=== PATIENT | female | born 1960 | race Caucasian/White ===

== ENCOUNTER 2019-07-16 14:24 | Emergency (ER) | payer BC, SELFPAY ==
--- NOTE | 2019-07-16 14:36 | ED.URI ---
HPI - URI/Sore Throat General Chief Complaint: Upper Respiratory Infection Stated Complaint: sore throat/fever/cough/wheezing/chills Time Seen by Provider: 07/16/19 14:37 Source: patient Mode of arrival: ambulatory Limitations: no limitations History of Present Illness HPI Narrative: Maria C Still is a 58 female with hypothyroid, quentin cholesterol, diabetes, who comes to [facility] with upper respiratory symptoms, fever, congestion for 2 days Related Data Home Medications Medication Instructions Recorded Confirmed atorvastatin 20 mg tablet 20 mg PO DAILY tablet 06/07/19 07/16/19 lancets 28 gauge #25 each 06/07/19 06/07/19 levothyroxine 200 mcg tablet 200 mcg PO DAILY tablet 06/07/19 07/16/19 levothyroxine 25 mcg tablet 25 mcg PO DAILY tablet 06/07/19 07/16/19 metformin 500 mg tablet,extended 500 mg PO DAILY 06/07/19 07/16/19 release 24 hr pioglitazone 30 mg tablet 30 mg PO DAILY tablet 06/07/19 07/16/19 Allergies Allergy/AdvReac Type Severity Reaction Status Date / Time levofloxacin Allergy Unknown unknown Verified 06/07/19 16:33 Penicillins Allergy Unknown unknown Verified 06/07/19 16:33 Review of Systems Review of Systems: Narrative: CONSTITUTIONAL: Denies fever, chills, sweats. EYES: Denies visual changes, redness, discharge. ENT: Has rhinorrhea, congestion, sore throat, no otalgia. CARDIOVASCULAR: Denies chest pain, palpitations, edema. RESPIRATORY: Denies dyspnea, wheezing, has cough GASTROINTESTINAL: Denies abdominal pain, nausea, vomiting, diarrhea. GENITOURINARY: Denies dysuria, hematuria, abnormal discharge SKIN: Denies rash or itching. NEUROLOGIC: Denies numbness, or focal weakness. PSYCHIATRIC: Denies anxiety or depression. [facility] Past Medical History Medical History Benign essential hypertension (~2014) Class 3 severe obesity with serious comorbidity and body mass index (BMI) of 50.0 to 59.9 in adult (~1999) Diverticulitis (~2011) H/O malignant neoplasm of uterine body (~2012) History of cancer chemotherapy (~2012) Hyperlipidemia LDL goal <100 (~2014) Hypothyroidism, unspecified (~2009) Obesity (BMI 30.0-34.9) (~1979) Type 2 diabetes mellitus with other circulatory complications (~2016) Surgical History Surgical History H/O section 1988, 1990: [facility] History of cholecystectomy (~1988) History of hysterectomy for cancer (~2011) 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 There is no relevant family history pertinent to the presenting complaint. Exam Narrative: Exam Narrative: GENERAL: This is a well-nourished, well-developed patient, in moderate distress. HEAD: normocephalic, atraumatic. EYES: Sclera clear/white. Vision is grossly intact. EARS: External ears normal, auditory canals clear and without drainage, TMs normal without perforation. Hearing grossly intact. NOSE: External nose normal with nasal discharge, nares with redness, has rhinorrhea. THROAT: Mucous membranes moist, posterior pharynx erythema NECK: Neck supple, non-tender CARDIOVASCULAR: Regular rate and rhythm without murmurs, gallops, or rubs. RESPIRATORY: Clear to a
[2019-07-16 14:37] VITALS: BP 152/69; PULSE 107; RESP 20; TEMP 38.8; O2SAT 96
== END 2019-07-16 15:09 | disposition home or self-care (01) ==
PROVIDERS: Emergency Provider Nurse Practitioner; PCP Family Medicine
DX: J10.1 Influenza due to other identified influenza virus with other respiratory manifestations (principal); E11.9 Type 2 diabetes mellitus without complications; E66.01 Morbid (severe) obesity due to excess calories; Z68.43 Body mass index [BMI] 50.0-59.9, adult; E03.9 Hypothyroidism, unspecified; E78.5 Hyperlipidemia, unspecified; Z85.42 Personal history of malignant neoplasm of other parts of uterus; Z92.21 Personal history of antineoplastic chemotherapy
CPT/HCPCS: 87081; 87804; 87880; 99213; G0463

== ENCOUNTER 2021-07-18 10:00 | Outpatient (RCR) | payer BC, SELFPAY ==
--- NOTE | 2021-06-13 12:10 | PTOPEVAL ---
Thank you for referring Maria C Still to [facility][Note 3].? The patient is scheduled to be seen for therapy? 1x/week for 6 weeks. Please review, sign, date and return this plan of care FERN. I agree with and certify that the following plan of care is medically necessary. Referring Physician Date Admitting Provider: Attending Provider: Ashley Connelly NP Referring Provider: *PT Outpatient Evaluation Start: 06/13/21 10:43 Freq: Status: Active Protocol: Document 06/13/21 10:43 AW (Rec: 06/13/21 11:32 AW [email or web address]) Therapy Assessment Status Assessment Status Assessment Status Evaluation Outpatient Past Medical History Past Medical History Source of Past Medical History Patient,Recalled from Previous Visit, Confirmed with Patient /Family Cardiovascular History Hx Hypercholesterolemia Yes Gastrointestinal History Hx Cholecystectomy Yes Musculoskeletal History Hx Orthopedic Surgery Yes: R wrist and shoulder s/p fall 2002 Endocrine History Hx Diabetes Yes Hx Hypothyroidism Yes Reproductive History Hx Section Yes Hx Other Reproductive Disorders Yes: hysterectomy Other History Hx Cancer Yes: uterine and fallopian CA 2011 Hx Other Surgeries Yes: panniculectomy 03/24/21 Evaluation Information Problem Diagnosis Low back pain (M54.50) Additional Evaluation Detail Pt states that she had a panniculectomy surgery at the beginning of March. She states that prior to that she did have some back pain and is still noticing back pain making it difficulty to stand for more than a few minutes and walk around the grocery store. She states that she just had her follow up with her surgeon who said everything has healed well. She did report that per her MD her abdominal muscles had . She states that she is unable to lay on her back. She also reports difficulty with incontinence. Pain Assessment Timing of Pain Assessment Timing of Pain Assessment Pre-Treatment Pain Scale Pain Scale Used Numeric (1 - 10) Self Report Pain Assessment Lower Back Reported Pain Level
--- NOTE | 2021-06-13 12:12 | PTOPEVAL ---
Thank you for referring Maria C Still to [facility].? The patient is scheduled to be seen for therapy?1x/week for 4-6 weeks. Please review, sign, date and return this plan of care FERN. I agree with and certify that the following plan of care is medically necessary. Referring Physician Date Admitting Provider: Attending Provider: Ashley Connelly NP Referring Provider: *PT Outpatient Evaluation Start: 06/13/21 10:43 Freq: Status: Active Protocol: Document 06/13/21 10:43 AW (Rec: 06/13/21 11:32 AW [email or web address]) Therapy Assessment Status Assessment Status Assessment Status Evaluation Outpatient Past Medical History Past Medical History Source of Past Medical History Patient,Recalled from Previous Visit, Confirmed with Patient /Family Cardiovascular History Hx Hypercholesterolemia Yes Gastrointestinal History Hx Cholecystectomy Yes Musculoskeletal History Hx Orthopedic Surgery Yes: R wrist and shoulder s/p fall 2002 Endocrine History Hx Diabetes Yes Hx Hypothyroidism Yes Reproductive History Hx Section Yes Hx Other Reproductive Disorders Yes: hysterectomy Other History Hx Cancer Yes: uterine and fallopian CA 2011 Hx Other Surgeries Yes: panniculectomy 03/24/21 Evaluation Information Problem Diagnosis Low back pain (M54.50) Additional Evaluation Detail Pt states that she had a panniculectomy surgery at the beginning of March. She states that prior to that she did have some back pain and is still noticing back pain making it difficulty to stand for more than a few minutes and walk around the grocery store. She states that she just had her follow up with her surgeon who said everything has healed well. She did report that per her MD her abdominal muscles had . She states that she is unable to lay on her back. She also reports difficulty with incontinence. Pain Assessment Timing of Pain Assessment Timing of Pain Assessment Pre-Treatment Pain Scale Pain Scale Used Numeric (1 - 10) Self Report Pain Assessment Lower Back Reported Pain Level
--- NOTE | 2021-07-18 14:05 | PCPTNOTE ---
Admitting Provider: Attending Provider: Ashley Connelly NP Patient:Maria C Still Date of :1960 07/18/21 PHYSICAL THERAPY DISCHARGE SUMMARY Maria C has been seen for skilled PT for 3 PT visits since initial evaluation. She has reported an improvement in her ability to put her socks on, stating that the L continues to be difficult to do. She reports compliance with HEP and feels that at this time, partly due to her very high deductible, agrees that continuing exercises at home would be best and to discharge from skilled PT at this time. She was given updated exercises as well as education on progressing exercises. She is very aware of her posture and body mechanics with exercises and during exercises. She is being discharged from skilled PT at this time with education in a home exercise program and invited to call with any questions/concerns. She was also advised to return to MD if she starts to feel like her back and hip pain are getting worse. Thank you for referring this patient to [facility]. Please review, sign, date and return this discharge summary FERN. I have been updated about the patient's current status and I agree with discharge from the above service at this time. Referring Physician Date
== END 2021-09-11 23:59 | disposition home or self-care (01) ==
LOC: ANHHIPT 10:00
PROVIDERS: PCP Family Medicine; Visit Provider Nurse Practitioner Family
DX: M54.50 Low back pain, unspecified (principal); G89.29 Other chronic pain
CPT/HCPCS: 97110; 97162

== ENCOUNTER 2024-02-26 09:52 | Outpatient (NON) | payer BC, SELFPAY | END 2024-02-26 09:53 | disposition home or self-care (01) | LOC: ANHGOSHLAB 09:54 | PROVIDERS: PCP Family Medicine; Visit Provider Family Medicine | DX: N39.0 Urinary tract infection, site not specified (principal) | CPT/HCPCS: 87077; 87086; 87186 ==

== ENCOUNTER 2024-08-19 00:59 | Day surgery (SDC) | payer MEDICARE, SELFPAY ==
[2024-08-15 10:24] VITALS: BMI 56.7
--- OUTSIDE RECORDS SUMMARY | 2024-08-19 01:02 | XMS_ITS ---
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 Past Treatment and Therapy Plans No past plan information found. Lifetime Dose Tracking * Chemical Lifetime Dose Automatic Entry Manual Entr y DLP 2,735 mGycm 2,735 mGycm 0 mGycm
--- OUTSIDE RECORDS SUMMARY | 2024-08-19 01:02 | XMS_ITS | Clinical Summary ---
Author Organization [facility] Address [facility] [place] [address] Care Team Providers Care Graduate Student Name Role Phone Unavailable Primary Care Provider Unavailabl e Social History Tobacco Use Types Packs/Day Years Used Date Smoking Tobacco: Never Assessed Comments Unknown Sex and Gender Information Value Date Recorded Sex Assigned at Not on file Legal Sex Female 9:16 PM CDT Gender Identity Not on file Sexual Orientation Not on file Last Filed Vital Signs Vital Sign Reading Time Taken Comments Blood Pressure 120/78 01/05/2012 4:53 PM CDT Pulse 88 01/05/2012 4:53 PM CDT Temperature - - Respiratory Rate - - Oxygen Saturation - - Inhaled Oxygen Concentration - - Weight 143.8 kg (317 lb) 01/05/2012 4:53 PM CDT Height - - Body Mass Index - - Plan of Treatment Health Maintenance Due Date Last Done Comments Cervical Cancer Screening Pa p Smear (Age 30 to 64) Every 3 Years 1960 Colorectal Cancer Screening Colonoscopy (10 Years) 1959 Annual Physical 08/29/1962 Hepatitis C 08/29/1977 DTaP, Tdap and Td Vaccines ( 1 - Tdap) 08/29/1978 Cervical Cancer Screening Pa p with HPV Testing (Age 30 to 64) Every 5 Years 08/29/1989 Cervical Cancer Screening with HPV 08/29/1989 Mammogram Screening 1999 Zoster Vaccines (1 of 2) 08/29/2009 COVID-19 Vaccine ( - 2023-2 5 season) 2024 RSV Immunization or 60+ Years (1 - 1-dose 75+ series) 08/29/2034 Meningococcal B Vaccine Aged Out No l onger eligible based on patient's age to complete this topic Meningococcal Vaccine Aged Out No blaire sonam eligible based on patient's age to complete this topic Pneumococcal Vaccine: Pediat rics (0 to 5 Years) and At-Risk Patients (6 to 64 Years) Aged Out No longer eligible b ased on patient's age to complete this topic RSV Immunizations Under 20 Months Aged Out No longer eligible based on patient's age to complete this topic
--- OUTSIDE RECORDS SUMMARY | 2024-08-19 01:02 | XMS_ITS | Clinical Summary ---
Author Organization [facility] Address [address] [place] [address] Care Team Providers Care Apartment Leasing Manager Name Role Phone Unavailable Primary Care Provider Unavailabl e Source Comments [facility],non-owned Affiliates and Associated Physician Practices is amultiple site organization consisting of ambulatory clinics and hospital sitesin [place], [place], [place] and [place]. This disclosure is being madepursuant to the Care Everywhere program and may not contain all information available regarding this patient. Last updated 18.[facility] Social History Tobacco Use Types Packs/Day Years Used Date Smoking Tobacco: Never Assessed Sex and Gender Information Value Date Recorded Sex Assigned at Not on file Gender Identity Not on file Sexual Orientation Not on file Plan of Treatment Health Maintenance Due Date Last Done Comments COLOGUARD (AGES 45-75) - COL ON CA SCREENING 1959 COLON MONITORING 1959 COLONOSCOPY - COLON CA SCREENING 1959 CT COLONOGRAPHY - COLON CA SCREENING 1959 Colorectal Cancer Screening 1959 FIT - COLON CA SCREENING 1959 FLEX SIG - COLON CA SCREENING 1959 LIPID TESTING 1959 MAMMOGRAM 1959 PAP SMEAR 1959 HIV SCREENING 08/29/1974 HEPATITIS C SCREENING 08/25/1977 DTAP/TDAP/TD VACCINES (1 - Tdap) 08/29/1978 PNEUMOCOCCAL VACCINE 50+ (1 of 1 - PCV) 08/29/2009 ZOSTER VACCINE (1 of 2) 08/29/2009 COVID-19 VACCINE ( - 2023-2 5 season) 2024 DEPRESSION SCREENING 05/18/2024 INFLUENZA VACCINE (Season Ended) 2025 Respiratory Syncytial Virus (RSV) Vaccine Pt: or over 60 yrs (1 - 1-dose 75+ series) 08/29/2034 HEPATITIS B VACCINE Aged Out No longe r eligible based on patient's age to complete this topic HIB VACCINE Aged Out No longer eligi ble based on patient's age to complete this topic HPV VACCINE Aged Out No longer eligi ble based on patient's age to complete this topic MENINGOCOCCAL (Group B) VACC INE SHARED DECISION-MAKING Aged Out No longer eligibl e based on patient's age to complete this topic MENINGOCOCCAL GROUPS A/C/Y/W VACCINE Aged Out No longer eligible b ased on patient's age to complete this topic PNEUMOCOCCAL VACCINE Aged Out No long er eligible based on patient's age to complete this topic
--- OUTSIDE RECORDS SUMMARY | 2024-08-19 01:02 | XMS_ITS | Referral Summary ---
Author Organization [facility] Address [facility] [place] [address] Care Team Providers Care Mesh Worker Name Role Phone Levon Oneil MD Primary Care Provider +1- [phone] Allergies Active Allergy Reactions Criticality Noted Date Comments Levofloxacin Other (See comments) Low 12/20/2015 Tendon problems Penicillins Rash Medium Vancomycin Unknown Low Reaction: Other Medications atorvastatin (LIPITOR) 20 mg tabletIndication s:hyperlipidemia Take 20 mg by mouth nightly 3 8 Active ketoconazole (NIZORAL) 2 % shampoo Apply 1 application topically 2 (two) times a week 0 8 Active mometasone (NASONEX) 50 mcg/actuation nasal sprayIndications :Allergic Rhinitis Administer 2 sprays into each nostril daily as needed 5 Active pioglitazone (ACTOS) 30 mg tabletIndication s:type 2 diabetes mellitus Take 30 mg by mouth nightly 3 9 Active SUPER THIN LANCETS 28 gauge misc USE TO CHECK BLOOD SUGAR DAILY 3 9 Active levothyroxine (SYNTHROID) 200 mcg tabletIndication s:hypothyroidism Take 200 mcg by mouth every morning 5 9 Active doxycycline monohydrate (MONODOX) 100 mg capsuleIndicatio ns:Derm. Take 100 mg by mouth nightly 1 Active naproxen sodium 220 mg capsuleIndicatio ns:Pain Take 440 mg by mouth every 12 (twelve) hours Active levothyroxine (SYNTHROID) 25 mcg tabletIndication s:hypothyroidism Take 25 mcg by mouth coil rewind machine operator before breakfast 1 Active cholecalciferol (VITAMIN D-3) 1,000 unit Take 1,000 Units by mouth every morning Active zinc 50 mg tabletIndication s:Zinc Deficiency Take 50 mg by mouth every morning Active acetaminophen 500 mg capsuleIndicatio ns:Pain Take 2 capsules (1,000 mg total) by mouth every 6 (six) hours 90 tablet 1 1 Active docusate sodium (COLACE) 100 mg capsuleIndicatio ns:constipation Take 1 capsule (100 mg total) by mouth 2 (two) times a day 60 capsule 1 Active oxyCODONE (ROXICODONE) 5 mg immediate release tabletIndication s:Pain Take 1 tablet (5 mg total) by mouth every 4 (four) hours as needed for pain 20 tablet 1 Active polyethylene glycol (MIRALAX) 17 gram packetIndication s:constipation Take 1 packet (17 g total) by mouth daily 30 packet 1 Active Active Problems Problem Noted Date Diagnosed Date [...] Dysfunctional uterine bleeding 03/04/2012 Thyroid disorder 03/04/2012 Social History Tobacco Use Types Packs/Day Years Used Date Smoking Tobacco: Never Smokeless Tobacco: Never Alcohol Use Standard Drinks/Week Comments No 0 (1 standard drink = 0.6 oz pur e alcohol) AUDIT-C Answer Date Recorded Q1: How often do you have a drink containing alc ohol? Monthly or less 03/26/2021 Q2: How many drinks containi ng alcohol do you have on a typical day when you are drinking? 1 or 2 03/26/2021 Q3: How often do you have si x or more drinks on one occasion? Never 03/26/2021 Comments No Sex and Gender Information Value Date Recorded Sex Assigned at Not on file Legal Sex Female 7:37 AM SANITATION MANAGER Gender Identity Female 07/24/2020 12:22 PM SANITATION MANAGER Sexual Orientation Straight 07/24/2020 12 :22 PM SANITATION MANAGER Last Filed Vital Signs Vital Sign Reading Time Taken Comments Blood Pressure 132/88 07/20/2023 11:29 AM SANITATION MANAGER Pulse 80 07/20/2023 11:29 AM SANITATION MANAGER Temperature 37.9 C (100.2 F) 07/20/2023 11:29 AM SANITATION MANAGER Respiratory Rate 18 03/27/2021 7:36 AM SANITATION MANAGER Oxygen Saturation 98% 07/20/2023 11:29 AM SANITATION MANAGER Inhaled Oxygen Concentration - - Weight 140.6 kg (310 lb) 07/20/2023 11:29 AM SANITATION MANAGER Height 162.6 cm (5' 4 ) 07/20/2023 11:29 AM SANITATION MANAGER Body Mass Index 53.21 07/20/2023 11:29 AM SANITATION MANAGER Plan of Treatment Not on file Insurance CHOICE [facility] [place] [facility] [place] Advance Directives For more information, please contact: [phone] * Full Code (Latest Code Status on File) Date Activated Date Inactivated Comments 03/26/2021 2:40 PM 03/27/2021 6:30 PM Care Teams Mesh Worker Relationship Specialty Start Date End Date Levon Oneil MD [address] [id number] PCP - General 06/04/17
--- OUTSIDE RECORDS SUMMARY | 2024-08-19 01:02 | XMS_ITS | Clinical Summary ---
Author Organization [facility] Address [facility] [place] [address] Care Team Providers Care Manifold Builder Name Role Phone Levon Oneil MD Primary Care Provider +1- [phone] Allergies Active Allergy Reactions Criticality Noted Date [...] tabletIndication s:hypothyroidism Take 25 mcg by mouth transportation design engineer before breakfast 1 Active cholecalciferol (VITAMIN D-3) [...] Dysfunctional uterine bleeding 03/04/2012 Thyroid disorder 03/04/2012 Surgical History Surgery Date Site/Laterality Comments PORT REMOVAL 11/08/2012 N/A FIBRIN SHEATH REMOVAL 06/09/2012 N/A CONTRAST INJECTION EVALUATIO N CENTRAL VENOUS ACCESS DEVICE 06/09/2012 N/A PORT PLACEMENT CHEST >5 YEARS 05/21/2012 N/A SECTION CHOLECYSTECTOMY WRIST SURGERY SHOULDER SURGERY HYSTERECTOMY W/ BILATERAL SALPINGOOPHORECTOMY Medical History Medical History Date Comments Acute rheumatic arthritis Cancer (HCC) Type 2 diabetes mellitus (HCC) Thyroid disease Lab test positive for detect ion of COVID-19 virus 01/09/2021 scanned into record PONV (postoperative nausea a nd vomiting) pt reports from antiemetics presurgery with Family History Medical History Relation Name Comments Diabetes Father Heart disease Father Diabetes Mother Hypertension Mother Kidney cancer Mother Obesity Mother Colon cancer Other 1 grandparents Obesity Other 1 grandparents Diabetes Other 2 siblings Obesity Other 2 siblings Colon cancer Paternal Grandmother Anesthesia problems Neg Hx Relation Name Status Comments Father Mother Other 1 grandparents Other 2 siblings Paternal Grandmother Social History Tobacco Use Types Packs/Day Years [...] on file Legal Sex Female 7:37 AM CONSTRUCTION MILLWRIGHT Gender Identity Female 07/24/2020 12:22 PM CONSTRUCTION MILLWRIGHT Sexual Orientation Straight 07/24/2020 12 :22 PM CONSTRUCTION MILLWRIGHT Obstetrics History Para Term AB IAB SAB Ectopic Multiple Livin g Live Births 2 2 2 2 2 Date Outcome GA Total Labor Labor/2nd/3rd Weight Sex Type Anes PTL Kathleen A1 A5 Name Clin Term Term Last Filed Vital Signs Vital Sign Reading Time Taken Comments Blood Pressure 132/88 07/20/2023 11:29 AM CONSTRUCTION MILLWRIGHT Pulse 80 07/20/2023 11:29 AM CONSTRUCTION MILLWRIGHT Temperature 37.9 C (100.2 F) 07/20/2023 11:29 AM CONSTRUCTION MILLWRIGHT Respiratory Rate 18 03/27/2021 7:36 AM CONSTRUCTION MILLWRIGHT Oxygen Saturation 98% 07/20/2023 11:29 AM CONSTRUCTION MILLWRIGHT Inhaled Oxygen Concentration - - Weight 140.6 kg (310 lb) 07/20/2023 11:29 AM CONSTRUCTION MILLWRIGHT Height 162.6 cm (5' 4 ) 07/20/2023 11:29 AM CONSTRUCTION MILLWRIGHT Body Mass Index 53.21 07/20/2023 11:29 AM CONSTRUCTION MILLWRIGHT Plan of Treatment Health Maintenance Due Date Last Done Comments Breast Cancer Screening-Mammogram 1959 Colon Cancer Screening-Colonoscopy 1959 Depression Screening 1959 Hepatitis C Screening 1959 Hepatitis B Screening 08/29/1977 Regular Well Visit/Exam 18-64 08/29/1977 Zoster Vaccine (1 of 2) 08/29/2009 DTaP/Tdap/Td Vaccine (2 - Td or Tdap) 04/27/2024 04/27/2014 Influenza Vaccine (Season Ended) 2025 04/27/20 14 Pneumococcal vaccine <65 Aged Out No longer eligible based on patient's age to complete this topic Insurance [place] Advance Directives For more information, please contact: [phone] * Full Code (Latest Code Status on File) Date Activated Date Inactivated Comments 03/26/2021 2:40 PM 03/27/2021 6:30 PM Care Teams Manifold Builder Relationship Specialty Start Date End Date Levon Oneil MD [address] [place] [address] PCP - General 06/04/17
[2024-08-19 07:48] VITALS: BP 131/76; PULSE 84; RESP 24; TEMP 36.3; O2SAT 100; BMI 58.5
[2024-08-19] MEDS: LACTATED RINGERS 1,000 ML 150 ML IV CONT (07:51)
--- NOTE | 2024-08-19 07:58 | P.PNAN_ITS ---
Anes - Initial Pre Proc Eval Procedure: Operation Date: 08/19/24 09:00 Proposed Procedures p Screening Colonoscopy - Deep Mcdowell MD Date/Time: 08/19/24 07:58 Surgeon: Deep Mcdowell MD Pre Op Diagnosis: screening malignant neoplasm of colon Patient Data Age: 63 Gender: F Height: 1.63 m Weight: 154.6 kg Last Vital Signs Temp 97.3 F L 08/19/24 07:48 Pulse 84 08/19/24 07:48 Resp 24 H 08/19/24 07:48 BP 131/76 08/19/24 07:48 Pulse Ox 100 08/19/24 07:48 O2 Del Method Room Air 08/19/24 07:48 Allergies Allergy/AdvReac Type Severity Reaction Status Date / Time levofloxacin AdvReac Unknown Achilles Verified 08/19/24 07:46 tendinitis Penicillins AdvReac Unknown syncope Verified 08/19/24 07:46 after IM injection Home Medications ?Medication ?Instructions ?Recorded ?Confirmed ?Type doxycycline hyclate 100 mg capsule 100 mg PO DAILY 05/28/21 08/19/24 History ketoconazole 2 % shampoo 1 applic topical 2XW 05/28/21 08/19/24 History atorvastatin 20 mg tablet 20 mg PO DAILY #90 tabs 03/16/23 08/19/24 Rx levothyroxine 200 mcg tablet 200 mcg PO DAILY #90 tabs 02/09/24 08/19/24 Rx oxybutynin chloride 10 mg 10 mg PO BID #180 tabs 02/24/24 08/19/24 Rx tablet,extended release 24 hr fluticasone propionate 50 2 spray intranasal DAILY PRN 06/14/24 08/19/24 History mcg/actuation nasal allergy symptoms spray,suspension (Flonase Allergy Relief) lisinopril 10 mg tablet 10 mg PO DAILY #90 tabs 06/14/24 08/15/24 Rx cholecalciferol (vitamin D3) 1,250 1,250 mcg PO WEEKLY #12 tabs 06/29/24 08/19/24 Rx mcg (50,000 unit) tablet pioglitazone 30 mg tablet 30 mg PO DAILY #90 tabs 08/02/24 08/19/24 Rx clotrimazole-betamethasone 1 applic topical Q12H PRN rash 08/15/24 History %-0.05 % topical cream nystatin 100,000 unit/gram topical 1 applic topical BID PRN rash 08/15/24 08/19/24 History powder Patient hx anesthesia problems: none Family hx anesthesia problems: none Results Review: All pre-operative results and documents have been reviewed as part of the pre- operative evaluation. FOR[facility]LY [facility] Past Medical History Medical History Rosacea Stress incontinence Chronic lower back pain Seasonal allergies Umbilical hernia Diverticulitis (~2011) History of cancer chemotherapy (~2012) H/O malignant neoplasm of uterine body (~2012) Class 3 severe obesity with serious comorbidity and body mass index (BMI) of 50.0 to 59.9 in adult (~1999) Benign essential hypertension (~2014) Hypothyroidism, unspecified (~2009) Hyperlipidemia LDL goal <100 (~2014) Type 2 diabetes mellitus with other circulatory complications (~2016) Surgical History Surgical History S/P panniculectomy (~2020) History of hernia repair (~03/2021) Panniculectomy and hernia repair at [facility] History of hysterectomy for cancer (~2011) 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 M obesity BMI 58, hyperlipidemia, HTN, hypothyroidism, pt can walk 1-2 fos, no cp, dyspnea w 2 fos. Informed Consent: The patient's anesthetic plan and its attendant risks and benefits were discussed with the patient/family/POA. Questions were solicited and answers provided to the satisfaction of the patient/family/POA.
[2024-08-19 08:07] LABS: Glucose Point of Care 125 mg/dl (65-105)
--- NOTE | 2024-08-19 08:37 | PM.HPGS ---
History of Present Illness History of Present Illness Consent: Risks, benefits, and alternatives have been discussed and questions answered. Patient agrees to proceed with procedure. Chief complaint: screening malignant neoplasm of colon Narrative: Maria C Still is a 63 year old female here for screening colonoscopy Review of Systems Review of Systems: All systems reviewed & are unremarkable except as noted in HPI and below PMFSH Past Medical History Medical History Rosacea Stress incontinence Chronic lower back pain Seasonal allergies Umbilical hernia Diverticulitis (~2011) History of cancer chemotherapy (~2012) H/O malignant neoplasm of uterine body (~2012) Class 3 severe obesity with serious comorbidity and body mass index (BMI) of 50.0 to 59.9 in adult (~1999) Benign essential hypertension (~2014) Hypothyroidism, unspecified (~2009) Hyperlipidemia LDL goal <100 (~2014) Type 2 diabetes mellitus with other circulatory complications (~2016) Surgical History Surgical History S/P panniculectomy (~2020) History of hernia repair (~03/2021) Pannic[facility]lectomy and hernia repair at [facility] History of hysterectomy for cancer (~2011) 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 Gender identity (if verbalized by the patient): Female Spiritual care concerns: No Agree to blood products: Yes Meds Home Medications and Allergies Home Medications ?Medication ?Instructions ?Recorded ?Confirmed ?Type doxycycline hyclate 100 mg capsule 100 mg PO DAILY 05/28/21 08/19/24 History ketoconazole 2 % shampoo 1 applic topical 2XW 05/28/21 08/19/24 History atorvastatin 20 mg tablet 20 mg PO DAILY #90 tabs 03/16/23 08/19/24 Rx levothyroxine 200 mcg tablet 200 mcg PO DAILY #90 tabs 02/09/24 08/19/24 Rx oxybutynin chloride 10 mg 10 mg PO BID #180 tabs 02/24/24 08/19/24 Rx tablet,extended release 24 hr fluticasone propionate 50 2 spray intranasal DAILY PRN 06/14/24 08/19/24 History mcg/actuation nasal allergy symptoms spray,suspension (Flonase Allergy Relief) lisinopril 10 mg tablet 10 mg PO DAILY #90 tabs 06/14/24 08/15/24 Rx cholecalciferol (vitamin D3) 1,250 1,250 mcg PO WEEKLY #12 tabs 06/29/24 08/19/24 Rx mcg (50,000 unit) tablet pioglitazone 30 mg tablet 30 mg PO DAILY #90 tabs 08/02/24 08/19/24 Rx clotrimazole-betamethasone 1 applic topical Q12H PRN rash 08/15/24 History %-0.05 % topical cream nystatin 100,000 unit/gram topical 1 applic topical BID PRN rash 08/15/24 08/19/24 History powder Allergies Allergy/AdvReac Type Severity Reaction Status Date / Time levofloxacin AdvReac Unknown Achilles Verified 08/19/24 07:46 tendinitis Penicillins AdvReac Unknown syncope Verified 08/19/24 07:46 after IM injection Vital Signs Vital Signs - 24 hr 08/19/24 07:48 Temperature 97.3 F L Pulse Rate 84 Respiratory Rate 24 H Blood Pressure 131/76 Pulse Oximetry 100 Oxygen Delivery Room Air Exam Const: General: comfortable and no acute distress Nutritional Appearance: obese HENMT: Face/Nose/Sinus: Normal nares present Eyes: General: appearance normal, both eyes and all related structures Neck: Neck: no JVD Resp: Auscultation: clear to auscultation bilaterally Cardio: Rate: regular rate Rhythm: regular rhythm GI: Inspection: non-distended GI Palp: Yes Soft to palpation Skin: General skin exam: normal color Neuro: Speech: normal speech Extrem: General: normal to inspection Psych: Mental Status: mental status grossly normal Assessment and Plan Assessment and plan (1) Colon cancer screening: Code(s): Z12.11 - Encounter for screening for malignant neoplasm of colon Status: Inactive Assessment and Plan: colonoscopy
[2024-08-19 09:00] VITALS: BP 119/72; PULSE 81; RESP 22; O2SAT 98
[2024-08-19 09:10] VITALS: BP 115/72; PULSE 71; RESP 21; O2SAT 99
[2024-08-19 09:20] VITALS: BP 116/71; PULSE 67; RESP 21; O2SAT 99
== END 2024-08-19 09:28 | disposition home or self-care (01) ==
PROVIDERS: PCP Family Medicine; Referring Provider Nurse Practitioner; Visit Provider Internal Medicine Gastroenterology
PROC: 0DJD8ZZ Inspection of Lower Intestinal Tract, Via Natural or Artificial Opening Endoscopic (ICD-10-PCS; CPT 45378; principal; 2024-08-19 09:00)
DX: Z12.11 Encounter for screening for malignant neoplasm of colon (principal); D12.3 Benign neoplasm of transverse colon; D17.5 Benign lipomatous neoplasm of intra-abdominal organs; K57.30 Diverticulosis of large intestine without perforation or abscess without bleeding; K64.8 Other hemorrhoids; E11.9 Type 2 diabetes mellitus without complications; E66.01 Morbid (severe) obesity due to excess calories; Z68.43 Body mass index [BMI] 50.0-59.9, adult
CPT/HCPCS: 45385; 82948; 88305; J2003; J2704; J7120